=== PATIENT | female | born 1960 | race Caucasian/White ===

== ENCOUNTER → 2017-01-03 | Outpatient (CLI) | payer BC, MEDICARE ==
[~2017-01-03] MED LIST: ASCO-285 PO; CALC-587 PO; ESCI20TA22 PO; ESTR1TAB32 PO; FISH1CAP28 PO; HYDR1TAB73 PO; INSU3INS3 SQ; IOHEXOL 180 MG/ML 20ml INJECTION ONE; LIDOCAINE 1% (10mg/ml) 5ml VIAL ONE; META800T88 PO; METF-200 PO; MULT-806 PO; MethylPREDNISolone ACETATE 40mg/1ml ONE; ROSU10TA13 PO; [UNRECOGNIZED DRUG - CODE] PO; [UNRECOGNIZED DRUG - CODE] PO; [UNRECOGNIZED DRUG - OTHER] SQ
--- NOTE | 2017-01-03 12:58 | DI ---
Indication:ITS.REASON: M51.36 OTHER INTERVERTEBRAL DISC DEGENERATION, LUMBAR REGION Procedure:EPIDURAL INJ.SPINE W FLUO CATH LUMBAR EPIDURAL INJECTION: The patient has low back and radicular pain. The patient has had a previous epidural that provided excellent relief. The details of the procedure, including the benefits, risks, and alternatives were explained to the patient. All of their questions were answered. They stated that they understood and wished to proceed. Informed consent was then obtained. A pre-procedural timeout was performed to confirm the correct patient and procedure. Utilizing aseptic technique, local lidocaine anesthetic, and fluoroscopic guidance throughout, a 22-gauge spinal needle was directed into the lumbar epidural space via a sacrococcygeal approach. Contrast was injected to assure proper positioning of the needle tip. A fluoroscopic image was then taken and archived. Subsequently, 120 mg Depo-Medrol was injected into the epidural space. The patient tolerated the procedure well. IMPRESSION: Successful lumbar epidural steroid injection. Fluoroscopy dose: 3.91 mGy (Cumulative air kerma) Remberto Benton RPA/GIULIANO performed this under my personal supervision. .
== END ==
LOC: IMA 09:46
PROVIDERS: ATTEND Family Medicine
DX: M54.5 Low back pain (principal); M51.36 Other intervertebral disc degeneration, lumbar region
CPT/HCPCS: 62323; J1030; Q9965

== ENCOUNTER → 2017-02-07 | Outpatient (CLI) | payer BC, MEDICARE ==
[~2017-02-07] MED LIST changes: -IOHEXOL 180 MG/ML 20ml INJECTION ONE; -LIDOCAINE 1% (10mg/ml) 5ml VIAL ONE; -MethylPREDNISolone ACETATE 40mg/1ml ONE
--- NOTE | 2017-02-07 08:35 | DI ---
Indication: ITS.REASON: R74.8 ELEVATED LIVER ENZYMES LEVEL PROCEDURE: US LIVER (HEPATIC): Encounter: Initial Comparison: None Technique: Grayscale and color Doppler sonographic imaging of the right upper quadrant of the abdomen was performed. Findings: Hepatic parenchyma is echogenic and sonographically dense without evidence for focal mass. Liver is borderline enlarged. The gallbladder is normal. There is no wall thickening, pericholecystic fluid, sonographic Avina's sign or cholelithiasis. Both the intra and extrahepatic biliary system are of normal caliber with the common duct measuring 5 mm in dimension. Visualized portions of the head and body of the pancreas are unremarkable. The right kidney is present without collecting system dilatation. The right kidney measures 10.6 cm in length. Impression: Hepatic steatosis .
== END ==
LOC: IMA 07:31
PROVIDERS: ATTEND Family Medicine
DX: K76.0 Fatty (change of) liver, not elsewhere classified (principal); R74.8 Abnormal levels of other serum enzymes